=== PATIENT | female | born 1980 | race Caucasian/White ===

== ENCOUNTER 2021-10-17 18:41 | Emergency (ER) | payer OTHER, SELFPAY ==
[2021-10-17] MEDS ORDERED: Ketorolac Tromethamine 30 MG/ML VIAL ONE (19:58)
== END 2021-10-17 21:27 | disposition home or self-care (01) ==
LOC: ERS 18:41
DX: M54.50 Low back pain, unspecified (principal); M79.604 Pain in right leg; R29.890 Loss of height; V89.2XXA Person injured in unspecified motor-vehicle accident, traffic, initial encounter; F17.220 Nicotine dependence, chewing tobacco, uncomplicated
CPT/HCPCS: 72100; 96372; J1885